=== PATIENT | female | born 1990 | race Two or more races ===

== ENCOUNTER → 2025-01-04 | Outpatient (CLI) | payer MEDICAID, SELFPAY ==
--- NOTE | 2025-01-04 15:30 | XR_ITS ---
Examination: Thyroid sonography complete TECHNIQUE: Grayscale sonographic images thyroid lobes Date and time: January 04, 2025 1539 hours INDICATIONS: Diagnosis hypothyroidism, mid neck pain beginning one week ago, left neck swelling beginning 3 weeks ago FINDINGS: Right thyroid 3.6 cm Left thyroid 3.1 cm No solid nodules IMPRESSION: Small thyroid lobes, no thyroid nodules
== END | disposition home or self-care (01) ==
LOC: CDIM 15:26
PROVIDERS: PCP Nurse Practitioner Family; Referring Provider Nurse Practitioner Family; Visit Provider Nurse Practitioner Family
DX: E03.9 Hypothyroidism, unspecified (principal)
CPT/HCPCS: 76536

== ENCOUNTER → 2025-01-19 | Outpatient (CLI) | payer MEDICAID, SELFPAY ==
--- NOTE | 2025-01-19 15:30 | XR_ITS ---
Examination: Transvaginal ultrasound of the pelvis, complete Technique: Transvaginal sonographic images pelvis performed using joshi scale imaging Exam date and time: January 19, 2025 1535 hours INDICATIONS: Pelvic pain beginning 2 months ago. FINDINGS: Uterus 9.7 cm intrauterine device satisfactory position Endometrial stripe 12 mm Right ovary 3.0 cm arterial flow Left ovary 2.9 cm arterial flow Bilateral small ovarian follicles IMPRESSION: Intrauterine device satisfactory position No uterine mass or intrauterine gestation.
== END | disposition home or self-care (01) ==
PROVIDERS: PCP Nurse Practitioner Family; Referring Provider Nurse Practitioner Family; Visit Provider Nurse Practitioner Family
DX: R10.2 Pelvic and perineal pain (principal); Z30.431 Encounter for routine checking of intrauterine contraceptive device
CPT/HCPCS: 76830

== ENCOUNTER → 2025-06-20 | Outpatient (CLI) | payer MEDICAID, SELFPAY ==
--- NOTE | 2025-06-20 11:00 | XR_ITS ---
Examination: Retroperitoneal ultrasound, complete Technique: Multiple high resolution grayscale images of the retroperitoneum obtained, including kidneys and bladder. Exam date and time: June 20, 2025, 1053 hours INDICATIONS: Recurrent urinary tract infections 8 months. FINDINGS: Right kidney 10.2 cm renal cortex 1.0 cm Left kidney 10.9 cm renal cortex 1.4 cm Mild left hydronephrosis Mild left renal scar formation No bladder mass or bladder calculi Bladder prevoid volume 576 cc postvoid volume 0 cc IMPRESSION: Mild left renal scarring Mild left hydronephrosis, consider urinary tract infection
== END | disposition home or self-care (01) ==
PROVIDERS: PCP Surgery; Visit Provider Surgery
DX: N28.89 Other specified disorders of kidney and ureter (principal); N13.30 Unspecified hydronephrosis
CPT/HCPCS: 76770